=== PATIENT | male | born 1975 | race Caucasian/White ===

== ENCOUNTER 2021-09-24 18:03 | Emergency (ER) | payer OTHER ==
[~2021-09-24] VITALS: Ht 177.8 cm; Wt 81.6 kg
[2021-09-24] MEDS: ONDANSETRON HCL 4 MG/2 ML VIAL IV ONE ×2 (20:00→23:19)
[2021-09-24] MEDS: MORPHINE SULFATE 4 MG/ML SYR/VIAL IV ONE ×2 (20:00→23:19)
[2021-09-25] MEDS: MORPHINE SULFATE 4 MG/ML SYR/VIAL ONE ×2 (01:23→01:30)
[2021-09-25 01:24] VITALS: BP 142/71
[2021-09-25] MEDS ORDERED: MORPHINE SULFATE 4 MG/ML SYR/VIAL IV ONE (01:30)
== END 2021-09-25 01:32 | disposition short-term general hospital (02) ==
LOC: EDBD 18:03 → EDUNIT# 18:03 → ER 18:03
DX: S52.001A Unspecified fracture of upper end of right ulna, initial encounter for closed fracture (principal); S42.032A Displaced fracture of lateral end of left clavicle, initial encounter for closed fracture
CPT/HCPCS: 29105; 70450; 71250; 72125; 73030; 73070; 73090; 74176; 96374; 96375; 96376; 99285; J2270; J2405; 29125